=== PATIENT | male | born 1935 ===

== ENCOUNTER 2018-11-08 09:38 | Outpatient (CLI) | payer OTHER ==
[~2018-11-08] VITALS: Ht 167.6 cm; Wt 58.5 kg
== END 2018-11-08 10:00 | disposition home or self-care (01) ==
LOC: OFIC 805 09:38
DX: H61.23 Impacted cerumen, bilateral (principal); H90.3 Sensorineural hearing loss, bilateral

== ENCOUNTER 2019-02-15 08:05 | Outpatient (CLI) | payer OTHER ==
[~2019-02-15] VITALS: Ht 152.4 cm; Wt 58.5 kg
== END 2019-02-15 12:45 | disposition home or self-care (01) ==
LOC: OFIC 805 08:05
DX: H90.3 Sensorineural hearing loss, bilateral (principal)